=== PATIENT | female | born 1950 | race Hispanic/Latino ===

== ENCOUNTER 2020-12-17 09:56 | Emergency (ER) | payer MEDICARE ==
[~2020-12-17] VITALS: Ht 154.9 cm; Wt 104.8 kg
== END 2020-12-17 11:15 | disposition home or self-care (01) ==
LOC: ER 10:53
DX: S40.011A Contusion of right shoulder, initial encounter (principal); M25.551 Pain in right hip; W01.0XXA Fall on same level from slipping, tripping and stumbling without subsequent striking against object, initial encounter; Y93.01 Activity, walking, marching and hiking; Y92.238 Other place in hospital as the place of occurrence of the external cause; I10 Essential (primary) hypertension; E78.5 Hyperlipidemia, unspecified
CPT/HCPCS: 99283

== ENCOUNTER 2021-07-19 15:28 | Emergency (ER) | payer MEDICARE, OTHER ==
[~2021-07-19] VITALS: Ht 154.9 cm; Wt 104.8 kg
[2021-07-19] MEDS ORDERED: CYCLOBENZAPRINE5 MG PO (17:59)
[2021-07-19 18:10] VITALS: BP 153/82
== END 2021-07-19 18:14 | disposition home or self-care (01) ==
LOC: ER 15:52
DX: S39.012A Strain of muscle, fascia and tendon of lower back, initial encounter (principal); M25.512 Pain in left shoulder; M25.511 Pain in right shoulder; M25.551 Pain in right hip; M25.562 Pain in left knee; W01.0XXA Fall on same level from slipping, tripping and stumbling without subsequent striking against object, initial encounter; Y92.89 Other specified places as the place of occurrence of the external cause; I10 Essential (primary) hypertension; E78.5 Hyperlipidemia, unspecified
CPT/HCPCS: 72110; 99283

== ENCOUNTER 2021-10-29 10:27 | Emergency (ER) | payer MEDICARE ==
[~2021-10-29] VITALS: Ht 154.9 cm; Wt 104.8 kg
[~2021-10-29 10:27] MED LIST: CYCLOBENZAPRINE5 MG PO
[2021-10-29] MEDS ORDERED: SODIUM CHLORIDE 0.9% 1000ML 1,000 ML IV STA (10:49)
[2021-10-29] MEDS ORDERED: ONDANSETRON HCL INJ 2MG/ML 2ML 2 MG/ML VIAL IV STA (10:49)
[2021-10-29] MEDS ORDERED: MECLIZINE HCL 12.5 MG TAB PO ONE (11:00)
[2021-10-29 11:17] LABS: BASOPHILS % 0.4 % (0.0-1.0); EOSINOPHILS % 0.2 % (0.0-6.0); HEMOGLOBIN 12.9 g/dL (12.0-16.0); LYMPHOCYTES # (AUTO) 2.6 (1.0-3.2); LYMPHOCYTES % 24.1 % (18.0-39.1); MEAN CORPUSCULAR HEMOGLOBIN 29.6 pg (28-32); MEAN CORPUSCULAR HGB CONC 32.3 g/dL (31-35); MEAN CORPUSCULAR VOLUME 91.7 fL (81-99); MONOCYTES # (AUTO) 0.5 (0.2-0.8); MONOCYTES % 4.9 % (4.4-11.3); NEUTROPHILS # (AUTO) 7.4 (2.1-6.9); NEUTROPHILS % 69.8 % (38.7-80.0); PLATELET COUNT 287 x10e3/uL (140-360); RED BLOOD COUNT 4.36 x10e6/uL (3.6-5.1); RED CELL DISTRIBUTION WIDTH 12.5 % (11.7-14.4)
[2021-10-29 11:22] LABS: CLARITY,URINE CLEAR (CLEAR); COLOR,URINE YELLOW (YELLOW)
[2021-10-29 11:23] LABS: KETONES,URINE NEGATIVE (NEGATIVE); LEUKOCYTE ESTERASE ,URINE TRACE (NEGATIVE); NITRITE,URINE NEGATIVE (NEGATIVE); PROTEIN,URINE DIPSTICK NEGATIVE (NEGATIVE); URINE UROBILINOGEN 0.2 mg/dL (0.2 - 1)
[2021-10-29 11:24] LABS: BACTERIA,URINE RARE /HPF; EPITHELIAL CELLS,URINE FEW /LPF
[2021-10-29 11:27] LABS: INR 0.88; PROTHROMBIN TIME 12.6 seconds (11.9-14.5)
[2021-10-29 11:28] LABS: PARTIAL THROMBOPLASTIN TIME 32.9 seconds (23.8-35.5)
[2021-10-29 11:36] LABS: ALBUMIN 3.7 g/dL (3.5-5.0); ALBUMIN/GLOBULIN RATIO 0.9 (0.8-2.0); ANION GAP 15.9 mmol/L (8-16); CALCIUM 9.6 mg/dL (8.4-10.2); CREATININE, SERUM 0.68 mg/dL (0.57-1.11); MAGNESIUM 1.6 MG/DL (1.3-2.1); POTASSIUM 3.9 mmol/L (3.5-5.1)
[2021-10-29 11:44] LABS: CREATINE KINASE MB 1.9 ng/mL (0-5.0)
== END 2021-10-29 13:12 | disposition home or self-care (01) ==
LOC: ER 10:37
DX: R42 Dizziness and giddiness (principal); N39.0 Urinary tract infection, site not specified; E11.65 Type 2 diabetes mellitus with hyperglycemia; I10 Essential (primary) hypertension; E78.5 Hyperlipidemia, unspecified
CPT/HCPCS: 36415; 70450; 80053; 81001; 82550; 82553; 83735; 84484; 85025; 85610; 85730; 87086; 93005; 99284; J2405; J7030; J8597

== ENCOUNTER 2024-06-29 09:21 | Emergency (ER) | payer MEDICARE, OTHER ==
[~2024-06-29] VITALS: Ht 154.9 cm; Wt 104.8 kg
[2024-06-29 09:57] VITALS: PULSE 76; RESP 15; TEMP 97.8; O2SAT 100
[2024-06-29] MEDS ORDERED: CYCLOBENZAPRINE10 MG PO (13:27)
[2024-06-29] MEDS: KETOROLAC TROMETHAMINE 30 MG/ML VIAL IM ONE (13:31)
[2024-06-29] MEDS: CYCLOBENZAPRINE HCL 10 MG TAB PO ONE (13:31)
== END 2024-06-29 13:32 | disposition home or self-care (01) ==
LOC: ER 09:56
DX: M79.604 Pain in right leg (principal); M54.16 Radiculopathy, lumbar region; M48.07 Spinal stenosis, lumbosacral region; I10 Essential (primary) hypertension; E11.9 Type 2 diabetes mellitus without complications; E78.5 Hyperlipidemia, unspecified
CPT/HCPCS: 72131; 99284

== ENCOUNTER 2025-04-26 11:03 | Emergency (ER) | payer MEDICARE ==
[~2025-04-26] VITALS: Ht 154.9 cm; Wt 104.8 kg
[~2025-04-26 11:03] MED LIST changes: +CYCLOBENZAPRINE10 MG PO
[2025-04-26 13:19] LABS: BASOPHILS % 0.3 % (0.0-1.0); EOSINOPHILS % 0.4 % (0.0-6.0); LYMPHOCYTES % 26.2 % (18.0-39.1); MONOCYTES % 11.7 % (4.4-11.3); NEUTROPHILS % 60.6 % (38.7-80.0); RED CELL DISTRIBUTION WIDTH 12.7 % (11.7-14.4)
[2025-04-26 13:27] LABS: INR 0.93
[2025-04-26] MEDS: SODIUM CHLORIDE 0.9% 1000ML 1,000 ML IV STA (13:35)
[2025-04-26 13:36] LABS: EST GLOMERULAR FILTRATION RATE 55.0 ML/MIN (>=60)
[2025-04-26] MEDS ORDERED: SODIUM CHLORIDE 0.9% 100 ML ONE (13:42)
[2025-04-26] MEDS ORDERED: IOPAMIDOL 370 MG/ML 100 ML INFUS..BTL INJ ONE (13:42)
[2025-04-26 19:00] VITALS: PULSE 76; RESP 18; TEMP 98.3
[2025-04-26] MEDS: SODIUM CHLORIDE 0.9% 1000ML 1,000 ML IV SCH (19:33)
[2025-04-26 19:43] VITALS: BP 140/93; PULSE 76; RESP 18; TEMP 98.3; O2SAT 99
== END 2025-04-26 20:30 | disposition other institution (70) ==
LOC: ER 12:24
DX: I77.74 Dissection of vertebral artery (principal); R11.2 Nausea with vomiting, unspecified; R42 Dizziness and giddiness; W01.0XXA Fall on same level from slipping, tripping and stumbling without subsequent striking against object, initial encounter; Y93.01 Activity, walking, marching and hiking; Y92.89 Other specified places as the place of occurrence of the external cause; I10 Essential (primary) hypertension; E11.9 Type 2 diabetes mellitus without complications; E78.5 Hyperlipidemia, unspecified; E66.01 Morbid (severe) obesity due to excess calories
CPT/HCPCS: 36415; 70496; 70498; 71045; 72125; 80053; 82550; 83735; 84484; 85025; 85610; 85730; 93005; 99284; J7030; J7050; Q9967